=== PATIENT | female | born 2000 | race Hispanic/Latino ===

== ENCOUNTER 2021-02-09 16:19 | Emergency (ER) | payer OTHER ==
[~2021-02-09] VITALS: Ht 162.6 cm; Wt 83.9 kg
[2021-02-09] MEDS ORDERED: NAPROXEN250 MG PO (16:48)
== END 2021-02-09 17:32 | disposition home or self-care (01) ==
LOC: FSED 16:31
DX: S93.402A Sprain of unspecified ligament of left ankle, initial encounter (principal); W01.0XXA Fall on same level from slipping, tripping and stumbling without subsequent striking against object, initial encounter
CPT/HCPCS: 99283

== ENCOUNTER 2021-03-03 14:07 | Emergency (ER) | payer OTHER ==
[~2021-03-03] VITALS: Ht 162.6 cm; Wt 87.2 kg
[~2021-03-03 14:07] MED LIST: NAPROXEN250 MG PO
[2021-03-03] MEDS ORDERED: ATIVAN0.5 MG PO (15:35)
== END 2021-03-03 15:53 | disposition home or self-care (01) ==
LOC: FSED 14:45
DX: F41.9 Anxiety disorder, unspecified (principal); R25.3 Fasciculation; F31.9 Bipolar disorder, unspecified
CPT/HCPCS: 81003; 81025; 99283